=== PATIENT | female | born 1970 | race Caucasian/White ===

== ENCOUNTER 2016-08-08 18:55 | Emergency (ER) | payer BC ==
--- NOTE | ~2016-08-08 | ER ---
PATIENT'S NAME: DOMONIQUE MARTINEZ [facility] AGE: 46 Y [address] ROOM: [place] [address] LOCATION: [facility] ADMIT DATE: 08/08/2016 ER/Outpatient Report DISCHARGE DATE: 08/08/2016 FAMILY PHYSICIAN: Samantha Cherry ATTENDING PHYSICIAN: Tomasz Morrison CHIEF COMPLAINT: Chest pain. HISTORY OF PRESENT ILLNESS: The patient states that she has been having intermittent chest pain, that is left-sided and stabbing in nature, that has been intermittent over the last week. The last time she was chest pain-free was approximately 6:00 p.m. She also has had some pain in her left arm. She is supposed to see a metal furniture polisher on Thursday for this issue and has been seen by her primary care physician. She has not taken anything to make this better. There is also a tingling characteristic with it. The symptoms are generally increasing in intensity, but have not changed in character since their onset several days ago. PAST MEDICAL HISTORY: Documented on the record and reviewed by me. SOCIAL HISTORY: Documented on the record and reviewed by me. MEDICATIONS: Documented on the record and reviewed by me. ALLERGIES: DOCUMENTED ON THE RECORD AND REVIEWED BY ME. REVIEW OF SYSTEMS: All systems were reviewed and negative except as noted in the HPI. PHYSICAL EXAMINATION: VITAL SIGNS: On arrival, blood pressure 163/112, pulse 82, respiratory rate is 20, temp 97.0, SpO2 is 99% on room air. GCS is 15. GENERAL: An age appropriate female, in no obvious pain or distress. Resting comfortably on the exam table. NEUROLOGIC: Awake, alert. GCS is 15. No focal deficits or asymmetry. HEENT: Normocephalic, atraumatic. Eyes are PERRL. Oropharynx is clear. NECK: Supple. Trachea is midline. CHEST: Heart is regular rate and rhythm with no murmurs. LUNGS: Clear to auscultation bilateral with no rhonchi, wheezes, or rales. The chest wall is slightly tender to palpation on the left side. PATIENT'S NAME: DOMONIQUE MARTINEZ [facility] AGE: 46 Y [address] ROOM: [place] [address] LOCATION: [facility] ADMIT DATE: 08/08/2016 ER/Outpatient Report DISCHARGE DATE: 08/08/2016 FAMILY PHYSICIAN: Samantha Cherry ATTENDING PHYSICIAN: Tomasz Morrison ABDOMEN: Soft, nontender, and nondistended. No rebound or guarding. BACK: Nontender to palpation throughout. No CVA tenderness. EXTREMITIES: Warm and well perfused. No areas of edema or erythema. The extremities are otherwise normal to inspection. SKIN: Warm, dry, and intact. LABORATORY DATA AND X-RAYS: Chest x-ray obtained and normal per my read. EKG obtained initially at approximately 1900 hours with no significant ischemic abnormalities. No comparison available. Repeat EKG with no changes appreciated. Labs, CMP is grossly unremarkable. Magnesium 2.5. CPK is 85, CK-MB is below threshold as is troponin. Repeat CK-MB and troponin are both below threshold as well. EMERGENCY DEPARTMENT COURSE: The patient was seen and evaluated as above. Her chest pain ceased on its own. At this time, she is low risk by Wells' criteria and she is PERC negative, thus ruling out PE. Presentation is not consistent with aortic dissection. The time course and normal troponins and EKG make ACS unlikely. She has minimal risk factors. I think this is more likely related to anxiety. In any case, she has an appointment with a metal furniture polisher on Thursday, and I have told her to keep that appointment. She should return immediately if symptoms worsen. All questions answered, and the patient was discharged. MD ALESIHA BEAVERS/melanie /[id number] d: 08/09/16 0303 t: 08/20/16 0834, OUTPATIENT REPORT
[2016-08-08 19:28] LABS: BASOPHIL # 0.1 K/uL (0.0-0.2); BASOPHIL % 0.9 %; EOSINOPHIL # 0.2 K/uL (0.0-0.5); HEMATOCRIT 44.1 % (33.0-46.0); HEMOGLOBIN 14.3 g/dL (10.0-15.0); IMMATURE GRANULOCYTE % 0.3 %; LYMPHOCYTE # 2.5 K/uL (0.8-4.0); LYMPHOCYTE % 32.5 %; MCH 29.4 pg (27.0-34.0); MCHC 32.4 gm/dL (32.0-36.5); MCV 90.6 fl (83.0-98.0); MONOCYTE # 0.6 K/uL (0.0-1.0); MONOCYTE % 7.7 %; MPV 10.6 fl (9.4-12.4); NEUTROPHIL # (ANC) 4.3 K/uL (1.8-7.8); NEUTROPHIL % 56.6 %; NRBC % 0 /100WBC (0-0.00); PLATELET COUNT 255 K/uL (150-450); RBC 4.87 M/uL (3.50-5.50); RDW-CV 12.2 % (11.9-14.6); WBC 7.6 K/uL (4.0-11.0)
[2016-08-08 19:39] LABS: PTT 23 SECONDS (25-32)
[2016-08-08 19:47] LABS: ALBUMIN 4.2 gm/dL (3.5-5.0); ALK PHOS 54 IU/L (33-138); ALT 36 IU/L (12-78); ANION GAP 13.7 (10.0-19.0); AST 19 IU/L (10-40); BLOOD UREA NITROGEN 13 mg/dL (6-24); CHLORIDE 109 mMol/L (96-110); CO2 25 mMol/L (22-32); CPK 85 IU/L (21-215); ESTIMATED GFR (MDRD EQUATION) 60; MAGNESIUM 2.5 mg/dL (1.3-2.6); POTASSIUM 3.7 mMol/L (3.7-5.1); SODIUM 144 mMol/L (135-145); TOTAL BILIRUBIN 0.5 mg/dL (0.0-1.5); TOTAL PROTEIN 8.1 g/dL (6.0-8.4)
[2016-08-08 21:48] LABS: CPK 67 IU/L (21-215)
== END 2016-08-08 22:15 | disposition disaster alternative care site (69) ==
LOC: GMED 18:55
PROVIDERS: Emergency Medicine
DX: R07.89 Other chest pain (principal)